=== PATIENT | male | born 1985 | race Caucasian/White ===

== ENCOUNTER 2021-08-25 17:03 | Emergency (ER) | payer OTHER, SELFPAY ==
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
[2021-08-25 17:38] VITALS: BP 115/80; PULSE 74; RESP 18; TEMP 36.7; O2SAT 99; BMI 23.7
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
--- NOTE | 2021-08-25 18:15 | PC.NURSE ---
attempted to place C collar on patient, patient refused
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
== END 2021-08-25 20:08 | disposition home or self-care (01) ==
PROVIDERS: Emergency Provider Emergency Medicine Emergency Medical Services
DX: S06.0X9A Concussion with loss of consciousness of unspecified duration, initial encounter (principal); S80.812A Abrasion, left lower leg, initial encounter; T14.8XXA Other injury of unspecified body region, initial encounter; M23.92 Unspecified internal derangement of left knee; V29.9XXA Motorcycle rider (driver) (passenger) injured in unspecified traffic accident, initial encounter; Y93.9 Activity, unspecified; Y92.410 Unspecified street and highway as the place of occurrence of the external cause; Y99.9 Unspecified external cause status
CPT/HCPCS: 73502; 73562; 73590; 90471; 99283; 99284

== ENCOUNTER 2021-08-26 01:13 | Emergency (ER) | payer OTHER, SELFPAY ==
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
[2021-08-26 01:20] VITALS: BP 121/76; PULSE 79; RESP 16; TEMP 37.1; O2SAT 99; BMI 23.6
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
[2021-08-26] MEDS: Ketorolac Tromethamine 60 MG/2 ML VIAL IM (01:50)
[2021-08-26 02:06] LABS: D Dimer High Sensitivity 544 NG/ML
[2021-08-26] MEDS: oxyCODONE HCl Immed Release 5 MG TABLET 10 MG PO (03:37)
== END 2021-08-26 03:45 | disposition home or self-care (01) ==
PROVIDERS: Emergency Provider Emergency Medicine
DX: S82.141A Displaced bicondylar fracture of right tibia, initial encounter for closed fracture (principal); M79.604 Pain in right leg; V23.4XXA Motorcycle driver injured in collision with car, pick-up truck or van in traffic accident, initial encounter; Y93.9 Activity, unspecified; Y92.410 Unspecified street and highway as the place of occurrence of the external cause; Y99.9 Unspecified external cause status
CPT/HCPCS: 36415; 73700; 85379; 96372; 99284; J1885

== ENCOUNTER 2021-08-26 11:54 | Emergency (ER) | payer OTHER, SELFPAY ==
--- NOTE | ~2021-08-26 | US_ITS ---
EXAMINATION: US VENOUS ULTRASOUND WITH DOPPLER LOWER EXTREMITY, LEFT CLINICAL INFORMATION: Edema COMPARISON: CT dated 08/26/2021 TECHNIQUE: Ultrasound of the deep veins is performed from the hip to the calf with compression sonography and color and pulse Doppler assessment. Spectral analysis with color-flow imaging is performed. FINDINGS: There is normal venous compression and respiratory variation and augmented flow. The visualized common femoral vein, superficial femoral vein, profunda femoral vein, popliteal vein, and the trifurcation region shows no evidence of deep venous thrombosis. There is no significant popliteal fossa cyst. Echogenic fluid is seen deep to the gastrocnemius, between the gastrocnemius and soleus musculature. If the patient's symptoms persist, followup ultrasound in 5 days 7 days might be of value to exclude proximal propagation from a non-visualized calf vein. US/US venous duplex LE LT IMPRESSION: No DVT demonstrated in the left lower extremity. Hematoma present between the medial gastrocnemius and soleus musculature as seen on the prior CT.
[2021-08-26 12:05] VITALS: BP 106/69; PULSE 83; RESP 18; TEMP 36.7; O2SAT 97; BMI 23.7
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
== END 2021-08-26 15:13 | disposition home or self-care (01) ==
PROVIDERS: Emergency Provider Emergency Medicine Emergency Medical Services
DX: R60.0 Localized edema (principal); M79.605 Pain in left leg
CPT/HCPCS: 93971; 99283; 99284

== ENCOUNTER → 2021-08-27 10:58 | Outpatient (BNVA) | payer OTHER, SELFPAY | PROVIDERS: Visit Provider Physician Assistant | DX: S82.142A Displaced bicondylar fracture of left tibia, initial encounter for closed fracture (principal) | CPT/HCPCS: 99202 ==

== ENCOUNTER → 2021-09-10 09:49 | Outpatient (BNVA) | payer OTHER, SELFPAY | PROVIDERS: Visit Provider Physician Assistant | DX: S82.142A Displaced bicondylar fracture of left tibia, initial encounter for closed fracture (principal) | CPT/HCPCS: 99212 ==

== ENCOUNTER 2021-09-21 10:00 | Outpatient (RCR) | payer OTHER, SELFPAY ==
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
--- NOTE | 2021-09-21 11:10 | MHC.PT.OD ---
[facility] [place] Office [place] Office [place] Office [address] Kim Hendricks [address] [phone] F: [phone] F: [phone] F: [phone] F: [phone] Physical Therapy Daily Note Diagnosis: PT eval and treat; S82.142A Displaced bicondylar fracture of left tibia, initial encounter for closed fracture; GENTLE ROM, iso quad strength, NWB tibial fracture, left signed by Maryjo Bower PA-C 08/27/21 Date of Surgery: Date of Evaluation: 08/28/21 Date of Treatment: 09/21/21 Treatments to Date: Cancellations to Date: No Shows to Date: Authorized Visits: 4 Insurance End Date: Precautions/ Contraindications:NWB L LE GENTLE ROM Brandon brace locked in ext while ambulating DOI 08/25/21: Displaced bicondylar fracture of left tibia, initial encounter for closed fracture; GENTLE ROM, iso quad strength, NWB tibial fracture, left Subjective: I havent been doing the exercises, I tried them once but then I stopped. Pain Score and Location: Objective Flowsheet: Tests & Measures AAROM 0 to 107 degrees Reeducated re: NWB with ambulation- need to keep brace locked in ext for ambulation Reviewed 4 way SLR NWB with good control with brace locked in ext - pt requires increased education in compliance, poor compliance and carryover demonstrated. Exercises Presents wearing immobilizer demonstrating NWB with bilateral axillary crutches, performed gastroc AA towel stretch with brace on x 20 sec hold x 5R, removal of brace with leg extended on bed, iso quad set at 0, 30, 60 x 5 sec hold x 30R. AAROM soleus stretch with strap x 20sec hold x 5R, AAROM gentle heel slides to 90 degrees after 10R, [place] brace locked in knee ext for mat non weightbearing 4 way (SLR, hip add, hip ext, and hip abd) with emphasis on quad control x 20R Advised in recommendation to progress to 3 sets 10. AAROM knee extension heel prop with ice in supine post completion of exercise. Passive heel prop knee extension stretch x 10 minutes. Educated re: home program for all. Education to wear immobilizer locked in ext maintain NWB with use of axillary crutches. Modalities Assessment: 09/21/21: Pt presents to office reporting overall improvement in his L LE progress over the past two weeks. He continues to require repeated education re: the importance of compliance and doing his written HEP. He does not carry through recommendations/instruction of therapist given from previous sessions and requires reiteration. AAROM ext 0 to flexion to 107 today. Resolving ecchymosis noted along medial gastroc. Abrasion on tibia resolving. 09/14/21: Pt demonstrated much improved tolerance for ther-ex this date; issued written HEP with instruction of progressing reps for 4 way SLR on bed with Butterfield brace locked in ext; starting with 10R working up to 3 sets 10R as able. AAROM -10 to 90 ROM L knee today. Reports resolving calf pain. No pain verbalized during treatment session today. PT Plan: Follow up with orthopedic 09/21/21. Short Term Goals: 1. AROM L knee ext -5 degrees. 2. Demonstrate compliance with use of knee immobilizer. 3. Initiate HEP program. 4. Demonstrate NWB L LE with bilateral axillary crutches. Fdc Goals: 1. AROM L knee ext 0 degrees. 2. Strength L LE 5/5 ext, flex 5/5. 3. Negotiate stairs reciprocally with good dynamic balance as weight-bearing progresses. 4. L knee flexion 130 AROM (in NWB as cleared per MD). Electronically signed by: Dolores Barker, PT, DPT
== END 2021-10-23 08:37 | disposition home or self-care (01) ==
LOC: HO.PTWFD 10:00
PROVIDERS: Visit Provider Physician Assistant
DX: S82.142D Displaced bicondylar fracture of left tibia, subsequent encounter for closed fracture with routine healing (principal)
CPT/HCPCS: 97110; 97162; 97535

== ENCOUNTER → 2021-09-24 10:15 | Outpatient (BNVA) | payer OTHER, SELFPAY | PROVIDERS: Visit Provider Orthopaedic Surgery | DX: S82.142D Displaced bicondylar fracture of left tibia, subsequent encounter for closed fracture with routine healing (principal) | CPT/HCPCS: 99212 ==

== ENCOUNTER 2025-06-26 08:32 | Emergency (ER) | payer OTHER, SELFPAY ==
--- NOTE | ~2025-06-26 | XR_ITS ---
CLINICAL HISTORY: CP 1 view chest x-ray. Comparison: None Findings: Normal lung volumes. Lungs are clear. No pneumothorax or pleural effusion. Heart size normal. No passive venous congestion. No midline shift or tracheal deviation. No acute fracture. Impression: 1. No acute cardiopulmonary disease. This document has been electronically signed by: Derek Haque MD on 06/26/2025 12:15:40
--- NOTE | 2025-06-26 08:34 | ECG_ITS ---
Test Reason : CHEST PAIN Blood Pressure : */* mmHG Vent. Rate : 80 BPM Atrial Rate : 80 BPM P-R Int : 164 ms QRS Dur : 72 ms QT Int : 368 ms P-R-T Axes : 79 68 44 degrees QTcB Int : 424 ms Normal sinus rhythm with sinus arrhythmia Possible Anterior infarct , age undetermined Abnormal ECG No previous ECGs available Referred By: Generic ED Physician Electronically Signed By: JUAN PABLO MATTHEWS
[2025-06-26 08:45] VITALS: BP 142/62; PULSE 70; RESP 18; TEMP 36.8; O2SAT 97; BMI 19.4
--- NOTE | 2025-06-26 08:49 | MHC.EDTECH ---
0825 This tech gave EKG to Md Joshua
--- NOTE | 2025-06-26 09:26 | PC.NURSE ---
Pt comes to ED to with various complaints: chest pain, diarrhea, chills, feeling shaky, heightened anxiety, poor PO intake and palpitations. He reports symptoms come and go and present at different time, in different combinations. He has a hard time articulating specific times when these symptoms occur but does feel like they are triggered at time by eating or excess noise. Pt states the last two night he has been woken from his sleep at 0300 feeling anxious and this morning experiences diarrhea. He reports having increased life stressors at this time. Pt denies SI/HI He denies ETOH use and reports intermittent use of Marijuana however reports he has recently quit using marijuana 1 week ago; prior to that he was using up to 2x/day. Pt denies any new medications; he denies medications in general. A&Ox3 VSS Skin is warm and dry; color consistent with ethnicity. Breaths and speech are even and unlabored. Chest is absent of trauma or structural defect. No n/v noted at this time. Oral mucosa is pink and moist. Facial symmetry present. Pt placed on cardiac monitoring Blood labs sent---results pending. ED provider at bedside. Awaiting new orders/dispo
[2025-06-26 09:33] LABS: MANUAL DIFF FLAG NO
[2025-06-26 09:35] LABS: Hematocrit 36.5 % (42.0-52.0); Hemoglobin 12.9 g/dl (14.0-18.0); Imm Gran Abs Auto 0.01 X10*3/uL (0.00-0.03); Imm Gran Pct Auto 0.3 % (0.0-0.4); Lymphocytes Absolute Auto 1.1 X10*3/uL (1.2-4.9); Mean Corpuscular HGB Conc 35.3 g/dl (31.0-36.0); Mean Corpuscular Hemoglobin 31.2 pg (27.0-33.0); Mean Corpuscular Volume 88.4 fL (80.0-98.0); NRBC Abs Auto 0.000 X10*3/uL (0.0-0.012); NRBC Pct Auto 0.0 /100WBC (0.0-0.2); Platelet Count 160 X10*3/uL (160-400); Red Blood Count 4.13 X10*6/uL (4.60-5.80); White Blood Count 3.2 X10*3/uL (4.8-10.8)
--- NOTE | 2025-06-26 09:42 | ED_ITS ---
HPI - General Adult General Chief complaint: General Medical Stated complaint: CP, nausea, diarrhea Time Seen by Provider: 06/26/25 09:06 Source: patient Mode of arrival: ambulatory Limitations: no limitations History of Present Illness ED Provider: DR. Caban HPI narrative: 39-year-old male history of cannabis use that he is trying to quit has not had any smoke for the past week patient presented for evaluation of left-sided chest pain, feeling anxious, chest pain associated with shortness of breath, patient think he can come himself down by smoking marijuana but he is really like to quit smoking, no recent travel, no lower extremity swelling or prolonged immobilization. No trauma to the chest, no fever, no chills, no coughing. Related Data Previous Rx's ?Medication ?Instructions ?Recorded oxycodone 5 mg tablet 5 mg PO TID PRN pain #10 tab s 08/26/21 Allergies Allergy/AdvReac Type Severity Reaction Status Date / Time No Known Allergies Allergy Verified 06/26/25 08:46 Review of Systems 2 Review of Systems: All other systems are reviewed and are negative Constitutional: Reports as per HPI and Reports no additional constitutional complaints Eyes: Reports as per HPI and Reports no additional eye complaints Reports system reviewed and no additional complaints, except as documented Cardiovascular: Reports as per HPI and Reports no additional cardiovascular complaints Respiratory: Reports as per HPI and Reports no additional respiratory complaints Gastrointestinal: Reports as per HPI and Reports no additional gastrointestinal complaints Genitourinary: Reports no additional female genitourinary complaints Musculoskeletal: Reports no additional musculoskeletal complaints Skin/Breast: Reports system reviewed and no additional complaints, except as docu Psychiatric: Reports no additional psychiatric complaints Endocrine: Reports no additional endocrine complaints Hematologic/Lymphatic: Reports no additional hematologic/lymphatic complaints Allergic/Immunologic: Reports no additional allergic/immunologic complaints Reports system reviewed and no additional complaints, except as documented and Reports Abnormal speech present [facility] Past Medical History Medical History Patient denies medical problems Social History Social History Smoked in Last 30 Days: No Use of substances other than those prescribed or required for medical reasons: Yes Substance Use Frequency: Occasionally Last Used Substance: Weeks (ago) Advance Directives: No Advance Directives Information Provided: Yes Current occupational status: unemployed Current occupation: rt handed Physical Exam ED Vital Signs: Vital Signs - 24 hr 06/26/25 08:45 06/26/25 11:33 Temperature 98.2 F 98.2 F Pulse Rate 70 66 Respiratory Rate 18 12 Blood Pressure 142/62 H 113/74 Pulse Oximetry 97 97 Oxygen Delivery Method Room Air Room Air BMI result Body Mass Index 19.4 Vital signs have been reviewed and appear to be correct. Blood pressure elevated. Heart rate normal. Respiratory rate normal. Temperature normal. Oxygen saturation normal. Appearance: Anxious, Alert. Oriented X3. No acute distress. Head: Normal external exam. Normocephalic. Atraumatic. No Talbot signs noted. No raccoon eyes noted Eyes: PERRLA. EOMI. Conjunctiva and sclera normal. Eyelids normal. ENT: TM's Normal. Pharynx normal. Uvula midline. Moist mucous membranes. No trismus noted. No drooling noted. No muffled voice noted. Neck: Normal inspection. Neck supple. FROM. No adenopathy. Thyroid Normal. No meningeal signs. No neck mass noted. CVS: Normal heart rate and rhythm. Heart sound normal. No murmurs noted. Pulses normal throughout. Respiratory: No respiratory distress. Painless inspiration. Breath sounds normal. No wheezes/rales/rhonchi noted. Reproducible tenderness on the left side of the chest, no step-off, no deformity. No accessory muscle usage noted or decreased air movement noted. Abdomen: Soft and nontender. Bowel sounds normal in all 4 quadrants. No distention noted. No organomegaly noted. No visible injury noted. Back: No CVA tenderness. Full range of motion noted. Skin: Skin warm and dry. Normal skin color. Normal skin turgor. No rashes/lesions/lacerations noted. Extremities: No lower extremity edema. Extremities exhibit normal range of motion. Extremities nontender. Neuro: Oriented X 3. Cranial nerve exam: II-XII are grossly intact No motor deficit. No sensory deficit. Reflexes normal. Course Reevaluation(s) Reevaluation #1: 39-year-old male presented with left-sided chest pain that is I think secondary to anxiety and recent stoppage of using marijuana. labs are unremarkable patient is declining repeat troponin, will discharge to follow-up with PCP. Time: 12:18 Medical Decision Making Differential Diagnosis Differential Diagnoses: The differential diagnosis associated with the presentation includes (ACS, pneumonia, pneumothorax, pleural effusion, anxiety, electrolyte derangement, severe anemia.) Admission/Observation Consideration of admission/observation: Escalation of care including admission/observation considered Lab Data MDM Lab Attestation statement: I reviewed the patient's lab results. 06/26/25 09:29 06/26/25 09:29 Labs: Lab Results 06/26/25 Range/Units 09:29 WBC 3.2 L (4.8-10.8) X10*3/uL RBC 4.13 L (4.60-5.80) X10*6/uL Hgb 12.9 L (14.0-18.0) g/dl Hct 36.5 L (42.0-52.0) % MCV 88.4 (80.0-98.0) fL MCH 31.2 (27.0-33.0) pg MCHC 35.3 (31.0-36.0) g/dl RDW 12.6 (11.0-16.0) % Plt Count 160 (160-400) X10*3/uL MPV 9.0 L (9.4-12.4) fL Immature Gran % (Auto) 0.3 (0.0-0.4) % Neut % (Auto) 46.5 (45-73) % Lymph % (Auto) 35.2 (20-40) % [place] % (Auto) 13.4 H (2-11) % Eos % (Auto) 4.0 (0-4) % Baso % (Auto) 0.6 (0-2) % Lymph # (Auto) 1.1 L (1.2-4.9) X10*3/uL [place] # (Auto) 0.4 (0.1-1.2) X10*3/uL Eos # (Auto) 0.1 (0.0-0.4) X10*3/uL Baso # (Auto) 0.0 (0.0-0.2) X10*3/uL Abs Immat Gran (auto) 0.01 (0.00-0.03) X10*3/uL Absolute Neuts (auto) 1.5 L (2.0-8.3) x10*3/uL Absolute Nucleated RBC 0.000 (0.0-0.012) X10*3/uL Nucleated RBC % (auto) 0.0 (0.0-0.2) /100WBC Sodium 139 (135-145) mmol/L Potassium 3.8 (3.3-5.1) mmol/L Chloride 108 (96-108) mmol/L Carbon Dioxide 26 (22-29) mmol/L Anion Gap 9 L (12-20) BUN 27 H (9-16) mg/dL Creatinine 1.01 (0.5-1.4) mg/dL Estim Creat Clear Calc 94.0 Estimated GFR > 60 Random Glucose 93 (60-115) mg/dL Calcium 9.0 (8.4-10.2) mg/dL Total Bilirubin 0.8 (0.0-1.0) mg/dL Direct Bilirubin 0.2 (0.0-0.5) mg/dL AST 21 (5-37) U/L ALT 17 (0-40) U/L Alkaline Phosphatase 62 (39-117) U/L Troponin I High Sens < 2.7 (<3.5-35.0) ng/L Total Protein 6.9 (6.5-8.0) g/dL Albumin 4.3 (3.5-5.0) g/dL Lipase 20 (8-78) U/L Independent Interpretation I performed an independent interpretation of an: Plain X-Ray (Chest: No acute intrathoracic pathology.) Radiology Impression Discussion of test interpretation with radiology: I have reviewed the radiologist's reading. Discharge Plan Discharge Clinical Impression: Anxiety Patient Disposition: Home, Self-Care Instructions: Anxiety (ED) Prescriptions: No Action oxycodone 5 mg tablet 5 mg PO TID PRN (Reason: pain) Qty: 10 0RF Print Language: Libyan
[2025-06-26 09:56] LABS: Alanine Aminotransferase 17 U/L (0-40); Albumin Level 4.3 g/dL (3.5-5.0); Alkaline Phosphatase 62 U/L (39-117); Anion Gap 9 (12-20); Aspartate Amino Transferase 21 U/L (5-37); Blood Urea Nitrogen 27 mg/dL (9-16); Calcium 9.0 mg/dL (8.4-10.2); Carbon Dioxide 26 mmol/L (22-29); Chloride 108 mmol/L (96-108); Creatinine Clr Calc Pharmacy 94.0; Estimated Glomerular Filt Rate > 60; Lipase 20 U/L (8-78); Potassium 3.8 mmol/L (3.3-5.1); Sodium 139 mmol/L (135-145); Total Protein 6.9 g/dL (6.5-8.0)
[2025-06-26 10:06] LABS: Troponin-I High Sensitivity < 2.7 ng/L (<3.5-35.0)
--- OUTSIDE RECORDS SUMMARY | 2025-06-26 10:17 | XMS_ITS | Clinical Summary ---
Author Organization [facility] Address [address] [place] [address] Care Team Providers Care Clinical Research Analyst Name Role Phone Kobe Barrios MD Primary Care Provider Surgical History Surgery Date Site/Laterality Comments OTHER SURGICAL HISTORY PROCEDURE: DENIES PREVIOUS SURGERY Medical History Medical History Date Comments Asthma DX:Asthma Family History Medical History Relation Name Comments Diabetes Maternal Grandfather Coronary artery disease Paternal Grandfather s/p MA Coronary artery disease Uncle dad's bro s/p MA Relation Name Status Comments Maternal Grandfather Alive Paternal Grandfather Uncle dad's bro Social History Tobacco Use Types Packs/Day Years Used Date Smoking Tobacco: Never Smokeless Tobacco: Never Alcohol Use Standard Drinks/Week Comments Yes 0 (1 standard drink = 0.6 oz pur e alcohol) Sex and Gender Information Value Date Recorded Sex Assigned at Not on file Legal Sex Male 3:23 AM EST Gender Identity Not on file Sexual Orientation Not on file Obstetrics History Plan of Treatment Health Maintenance Due Date Last Done Comments DTaP,Tdap,and Td Vaccines (1 - Tdap) 2003 Hepatitis B Vaccines (1 of 3 - 19+ 3-dose series) 2003 Pneumococcal Vaccine: Pediat rics (0 to 5 Years) and At-Risk Patients (6 to 49 Years) (1 of 2 - PCV) 2003 Cholesterol Screening (Lipid Panel) 09/24/2024 HIV Screening 09/24/2024 Hepatitis C Screening 09/24/2024 Social Influencers of Health Screening 09/24/2024 Depression Screening 10/06/2024 COVID-19 Vaccine ( - 2023-2 5 season) 2025 Influenza Vaccine (#1) 2025 HIB Vaccines Aged Out No longer eligi ble based on patient's age to complete this topic HPV Vaccines Aged Out No longer eligi ble based on patient's age to complete this topic Hepatitis A Vaccines Aged Out No long er eligible based on patient's age to complete this topic IPV Vaccines Aged Out No longer eligi ble based on patient's age to complete this topic MMR Vaccines Aged Out No longer eligi ble based on patient's age to complete this topic Meningococcal ACWY Vaccine Aged Out N o longer eligible based on patient's age to complete this topic Meningococcal B Vaccine Aged Out No l onger eligible based on patient's age to complete this topic RSV Immunization Patients Un lauren 20 months Aged Out No longer eligible b ased on patient's age to complete this topic Varicella Vaccines Aged Out No longer eligible based on patient's age to complete this topic Care Teams Clinical Research Analyst Relationship Specialty Start Date End Date Kobe Barrios MD [address] [place] [address] RICHI MENDEZ [id number] PCP - General Internal Medicine 09/17/19
--- OUTSIDE RECORDS SUMMARY | 2025-06-26 10:17 | XMS_ITS ---
Author Name [facility] Organization Unknown Care Team Organization Name Specialty Phone Email Start Date End Da te [facility] Gilma Miles DO Primary Care 01/07/202305/06 [facility] NULL Primary Care 08/13/2022 05/24/2024
[2025-06-26 11:33] VITALS: BP 113/74; PULSE 66; RESP 12; TEMP 36.8; O2SAT 97
--- NOTE | 2025-06-26 11:35 | PC.NURSE ---
Pt up and ambulating to bathroom without distress. Pt requesting PO liquids. ED provider provides juice and sandwich
--- NOTE | 2025-06-26 12:11 | MHC.EDTECH ---
This tech attempted to obtain the 2nd trop from the Pt at 1208. Pt is agitated. Pt refused to have his blood drawn. This tech explained the reason for this repeat test. Pt requested to speak to a doctor. BIANCA Brock and Dr. Mee juárez.
[2025-06-26 12:34] VITALS: BP 113/74; PULSE 66; RESP 12; TEMP 36.8; O2SAT 97
== END 2025-06-26 12:42 | disposition home or self-care (01) ==
PROVIDERS: Emergency Provider Emergency Medicine
DX: F41.9 Anxiety disorder, unspecified (principal); R07.89 Other chest pain; R11.0 Nausea; R19.7 Diarrhea, unspecified; F12.90 Cannabis use, unspecified, uncomplicated
CPT/HCPCS: 36415; 71045; 80048; 80076; 83690; 84484; 85025; 93005; 99283; 99284

== ENCOUNTER → 2025-06-26 08:34 | Outpatient (BNV) | payer OTHER, SELFPAY | PROVIDERS: Emergency Provider Emergency Medicine; Visit Provider Internal Medicine | DX: I49.9 Cardiac arrhythmia, unspecified (principal) | CPT/HCPCS: 93010 ==

== ENCOUNTER → 2025-06-26 09:14 | Outpatient (BNV) | payer OTHER, SELFPAY | PROVIDERS: Emergency Provider Emergency Medicine; Visit Provider Radiology Diagnostic Radiology | DX: R07.89 Other chest pain (principal) | CPT/HCPCS: 71045 ==